=== PATIENT | male | born 1960 | race Caucasian/White ===

== ENCOUNTER 2017-12-10 12:39 | Day surgery (SDC) | payer BC ==
[~2017-12-10] VITALS: Ht 182.9 cm; Wt 113.2 kg
[2017-12-10 13:30] VITALS: BP 113/80
[2017-12-10] MEDS ORDERED: LACTATED RINGERS 1,000 ML IV SCH (13:35)
[2017-12-10 13:36] VITALS: BP 113/80
[2017-12-10] MEDS ORDERED: NONE PER PT (13:48)
[2017-12-10 14:16] LABS: BASOPHILS # (AUTO) 0.11 x10^3/uL (0-0.1); BASOPHILS % (AUTO) 1 % (0-1); EOSINOPHILS # (AUTO) 0.26 x10^3/uL (0-0.4); EOSINOPHILS % (AUTO) 3 % (1-7); LYMPHOCYTES # (AUTO) 2.29 x10^3/uL (1-3.4); LYMPHOCYTES % (AUTO) 28 % (22-44); MD NO; MEAN CORPUSCULAR HEMOGLOBIN 29.2 pg (27.5-34.5); MEAN CORPUSCULAR HGB CONC 34.3 g/dL (33.2-36.2); MEAN PLATELET VOLUME 7.8 fL (7.4-10.4); MONOCYTES # (AUTO) 0.64 x10^3/uL (0.2-0.8); MONOCYTES % (AUTO) 8 % (2-9); NEUTROPHILS # (AUTO) 4.83 x10^3/uL (1.8-6.8); NEUTROPHILS % (AUTO) 59 % (42-75); PLATELET COUNT 214 x10^3/uL (130-400); RED BLOOD COUNT 5.49 x10^6/uL (4.38-5.82); RED CELL DISTRIBUTION WIDTH 13.4 % (9.4-14.8)
[2017-12-10 14:26] LABS: ALBUMIN 3.8 g/dL (3.4-5.0); ANION GAP 9 mmol/L (5-15); CHLORIDE 105 mmol/L (98-107)
[2017-12-10] MEDS ORDERED: MIDAZOLAM 1 MG/ML, 2ML ONE (14:27)
[2017-12-10] MEDS ORDERED: FENTANYL PF 100 MCG/2ML ONE ×2 (14:27→15:47)
[2017-12-10 14:29] LABS: ALANINE AMINOTRANSFERASE 35 U/L (12-78); ALKALINE PHOSPHATASE 56 U/L (45-117); BILIRUBIN,TOTAL 1.6 mg/dL (0.2-1.0); CREATININE 1.26 mg/dL (0.7-1.3); TOTAL PROTEIN 7.5 g/dL (6.4-8.2)
[2017-12-10] MEDS ORDERED: PROPOFOL 10 MG/ML, 20ML ONE (14:29)
[2017-12-10] MEDS ORDERED: WATER-INJECTION,STERILE 10 ML IV ONE (14:30)
[2017-12-10] MEDS ORDERED: CEFAZOLIN 1,000 MG ONE ×2 (14:30)
[2017-12-10 14:32] LABS: CULTURE INDICATED? NO; MICROSCOPIC AUTO
[2017-12-10] MEDS ORDERED: DEXAMETHASONE 4 MG/ML, 1ML ONE ×2 (14:32)
[2017-12-10] MEDS ORDERED: hydrALAzine 20 MG/ML, 1ML IV PRN (15:30)
[2017-12-10] MEDS ORDERED: HYDROmorphone 2 MG/ML, 1ML IV PRN (15:30)
[2017-12-10] MEDS ORDERED: LORazepam 2 MG/ML, 1ML IVPush PRN (15:30)
[2017-12-10] MEDS ORDERED: OXYcodone 5 MG/5 ML ORAL.SOL UDC PO PRN (15:30)
[2017-12-10] MEDS ORDERED: PROMETHAZINE 25 MG/ML, 1ML IV PRN (15:30)
[2017-12-10] MEDS ORDERED: FENTANYL PF 100 MCG/2ML IV PRN (15:30)
[2017-12-10] MEDS ORDERED: HALOPERIDOL 5 MG/ML IV PRN (15:30)
[2017-12-10] MEDS ORDERED: MEPERIDINE/PF 25MG/0.5ML IVPush PRN (15:30)
[2017-12-10] MEDS ORDERED: LABETALOL 5MG/ML, 20ML IV PRN (15:30)
[2017-12-10] MEDS ORDERED: ACETAMINOPHEN 325 MG TABLET PO PRN (15:30)
[2017-12-10] MEDS ORDERED: KETAMINE 10 MG/ML, 20ML ONE (15:33)
[2017-12-10] MEDS ORDERED: KETOROLAC 30 MG/1 ML ONE (15:38)
[2017-12-10] MEDS ORDERED: ROCURONIUM 10MG/ML,5ML ONE (15:41)
[2017-12-10] MEDS ORDERED: ACETAMINOPHEN 650 MG/20.3 ML UDC ONE (16:33)
[2017-12-10] MEDS ORDERED: OXYcodone 5 MG/5 ML ORAL.SOL UDC ONE (16:33)
== END 2017-12-10 18:20 | disposition home or self-care (01) ==
LOC: OUT 12:39
PROVIDERS: ATTEND Urology
DX: C67.9 Malignant neoplasm of bladder, unspecified (principal); I10 Essential (primary) hypertension; E78.00 Pure hypercholesterolemia, unspecified
CPT/HCPCS: 36415; 52235; 80053; 81001; 85025; 88307; J0690; J1100; J1885; J2250; J2704; J3010; J7120